=== PATIENT | female | born 1990 | race Two or more races ===

== ENCOUNTER → 2016-06-21 | Outpatient (CLI) | payer SELFPAY | LOC: RAD 15:14 | PROVIDERS: ATTEND Nurse Practitioner Women's Health | DX: Z34.81 Encounter for supervision of other normal pregnancy, first trimester (principal) | CPT/HCPCS: 76801 ==

== ENCOUNTER 2017-02-03 03:24 | Inpatient (IN) | payer MEDICAID ==
[2017-02-03 04:09] LABS: APPEARANCE,URINE TURBID; BILIRUBIN,URINE NEGATIVE (NEGATIVE); GLUCOSE, URINE NEGATIVE (NEGATIVE); KETONES,URINE NEGATIVE (NEGATIVE); LEUKOCYTE ESTERASE,URINE TRACE (NEGATIVE); NITRITE,URINE NEGATIVE (NEGATIVE); PROTEIN,URINE 100 mg/dL (NEGATIVE); URINE SPECIFIC GRAVITY 1.005; UROBILINOGEN,URINE NEGATIVE mg/dL (<2.0)
[2017-02-03 04:17] LABS: AMNISURE (ROM) POSITIVE (NEGATIVE)
[2017-02-03] MEDS ORDERED: RINGERS SOLUTION,LACTATED 1,000 ML IV PRN (04:22)
[2017-02-03] MEDS ORDERED: RINGERS SOLUTION,LACTATED 1,000 ML IV ONE (04:22)
[2017-02-03 04:58] LABS: URINE BARBITURATES SCREEN NEGATIVE; URINE METHADONE SCREEN NEGATIVE; URINE OPIATES LOW NEGATIVE; URINE PHENCYCLIDINE SCREEN NEGATIVE
[2017-02-03] MEDS ORDERED: MISOPROSTOL 0.2 MG TABLET ONE (05:13)
[2017-02-03] MEDS ORDERED: LIDOCAINE 1% INJ-PF (10 MG/ML) 30 ML SDV ONE (05:13)
[2017-02-03] MEDS ORDERED: OXYTOCIN/NORMAL SALINE 20 UNIT/1,000 ML RTUINJ ONE ×2 (05:13→17:38)
[2017-02-03 05:17] LABS: ABSOLUTE LYMPHOCYTES (AUTO) 2.4 10^3/uL (0.5-4.7); ABSOLUTE MONOCYTES (AUTO) 0.7 10^3/uL (0.1-1.4); ABSOLUTE NEUT (AUTO) 7.9 10^3/uL (1.7-8.2); BASOPHILS % (AUTO) 0.2 % (0-2); EOSINOPHILS % (AUTO) 0.4 % (0-6); HEMATOCRIT 34.5 % (36.0-47.0); HGB HCT DIFFERENCE 1.5; LYMPHOCYTES % (AUTO) 21.4 % (13-45); MEAN CORPUSCULAR HEMOGLOBIN 30.6 pg (27.0-33.4); MEAN CORPUSCULAR HGB CONC 34.6 g/dL (32.0-36.0); MEAN CORPUSCULAR VOLUME 88 fl (80-97); MONOCYTES % (AUTO) 6.6 % (3-13); RED BLOOD COUNT 3.91 10^6/uL (3.72-5.28); RED CELL DISTRIBUTION WIDTH 14.3 % (11.5-14.0); SEGMENTED NEUTROPHILS % (AUTO) 71.4 % (42-78); WHITE BLOOD COUNT 11.1 10^3/uL (4.0-10.5)
[2017-02-03 05:53] LABS: RUBELLA IGG ANTIBODY 5.53 IU/mL
[2017-02-03] MEDS ORDERED: EPHEDRINE SULFATE INJ 50 MG/1 ML AMPULE ONE (06:01)
[2017-02-03] MEDS ORDERED: FENTANYL/BUPIVACAINE/NS/PF 200 MCG/100 ML RTUINJ EPI ONE (06:02)
[2017-02-03] MEDS ORDERED: BUPIVACAINE HCL 0.25 % INJ/PF (2.5 MG/1 ML) 30 ML VIAL ONE (06:02)
[2017-02-03] MEDS ORDERED: OXYTOCIN/NORMAL SALINE 20 UNIT/1,000 ML RTUINJ IV PRN (11:02)
[2017-02-03] MEDS ORDERED: CITRIC ACID/SODIUM CITRATE ORAL SOLN 15 ML UDCUP ONE (17:25)
[2017-02-03] MEDS ORDERED: CEFAZOLIN 2 GM/D5W RTU 0 GM/0 ML RTUPB IV ONE (17:25)
[2017-02-03] MEDS ORDERED: FAMOTIDINE INJ/PF 20 MG/2 ML SDV IV ONE (17:26)
[2017-02-03] MEDS ORDERED: SODIUM BICARBONATE 8.4% INJ 50 MEQ/50 ML DISP.SYRIN ONE (17:26)
[2017-02-03] MEDS ORDERED: METOCLOPRAMIDE HCL INJ/PF 10 MG/2 ML SDV ONE (17:26)
[2017-02-03] MEDS ORDERED: LIDOCAINE 1.5%/EPINEPHRINE INJ-PF 30 ML SDV ONE (17:28)
[2017-02-03] MEDS ORDERED: CLINDAMYCIN 900 MG/D5W RTU 50 ML IV ONE (17:28)
[2017-02-03] MEDS ORDERED: PROPOFOL INJ 200 MG/20 ML VIAL IV ONE (17:38)
[2017-02-03] MEDS ORDERED: MIDAZOLAM 2 MG/2 ML INJ ONE (17:39)
[2017-02-03] MEDS ORDERED: ONDANSETRON HCL INJ/PF 4 MG/2 ML SDV ONE (17:39)
[2017-02-03] MEDS ORDERED: KETAMINE HCL INJ 500 MG/10 ML VIAL ONE (17:39)
[2017-02-03] MEDS ORDERED: FENTANYL CITRATE INJ/PF 100 MCG/2 ML AMPUL ONE (17:39)
[2017-02-03] MEDS ORDERED: MORPHINE SULFATE 10 MG/ML INJ ONE (17:39)
[2017-02-03] MEDS ORDERED: ACETAMINOPHEN 325 MG TABLET PO PRN (19:00)
[2017-02-03] MEDS ORDERED: SIMETHICONE 80 MG TAB.CHEW PO PRN (19:00)
[2017-02-03] MEDS ORDERED: MEASLES,MUMPS&RUBELLA VACC/PF 0.5 ML VIAL SUBCUT PRN (19:00)
[2017-02-03] MEDS ORDERED: PROMETHAZINE HCL INJ 25 MG/1 ML VIAL IM PRN (19:00)
[2017-02-03] MEDS ORDERED: DIPH/PERTUSS(ACELL)/TETANUS VAC/PF 0.5 ML SYR (>=10YO) IM PRN (19:00)
[2017-02-03] MEDS ORDERED: OXYCODONE-ACETAMINOPHEN 5-325 MG TABLET PO PRN (19:00)
[2017-02-03] MEDS ORDERED: HYDROMORPHONE HCL INJ/PF 2 MG/ML AMPULE IV PRN (19:00)
--- NOTE | 2017-02-03 19:38 | OPERATIVE REPORT E ---
Operative Report NAME: NATHANAEL PIERRE : 1990 AGE: 26Y DATE OF SURGERY: 02/03/2017 ROOM: LR200 PREOPERATIVE DIAGNOSES: 1. A 40-week intrauterine . 2. Arrest of descent. POSTOPERATIVE DIAGNOSES: 1. A 40-week intrauterine . 2. Arrest of descent. OPERATION: Primary low-transverse section. SURGEON: Gamal Del Real D.O. FIELD LABORER: None. ANESTHESIA: Epidural. COMPLICATIONS: None. ESTIMATED BLOOD LOSS: 600 mL. PATHOLOGY: None. FINDINGS: 1. Viable male at 1756 hours on 02/03/2017. 2. Apgars 8 at one, 9 at five. 3. Weight: 10 pounds 6 ounces. 4. Normal-appearing bilateral fallopian tubes and ovaries. DESCRIPTION OF PROCEDURE: The patient was taken to the operating room where she was placed in the dorsal supine position with a leftward tilt upon the operating room table. Her epidural anesthesia was then checked and found to be adequate. She was than prepped and draped in a normal sterile fashion. A scalpel was then used to make a Pfannenstiel skin incision. The skin incision was carried down through the subcutaneous tissues to the layer of the fascia. The fascia was then incised at the midline, and the fascial incision was then extended bilaterally using the Bovie cautery. The superior fascial edge was grasped with Qi clamps, elevated, and the rectus muscles dissected off sharply and bluntly. Attention was then turned to the inferior fascial edge, which was grasped with Qi clamps, elevated, and rectus muscles dissected off sharply and bluntly. The rectus muscles were then in the midline, the perineum identified and entered bluntly with the surgeon's hand. Bladder blade was then inserted. A scalpel was used to make a low transverse hysterotomy incision. The infant was delivered through this incision in the cephalic position without difficulty and atraumatically. The nose and mouth were suctioned. Cord was clamped and cut. The was handed off to the awaiting tap and die maker technician. Cord blood was obtained. The placenta was then manually removed from the uterus. The uterus was exteriorized and cleared of all clots and debris. The hysterotomy incision was then reapproximated using 2 layers of 1-0 Vicryl in a running locking fashion, following closely with a second layer. Excellent hemostasis was noted. The uterus was then returned to the abdomen. The bilateral pericolic gutters were irrigated and cleared of all clots and debris. Again, the hysterotomy was reinspected and found to have excellent hemostasis. The rectus muscles were then reapproximated using 1-0 Vicryl interrupted sutures. The fascia was then closed using 1-0 Vicryl in a running, non-locking fashion. The subcutaneous space was then made hemostatic using Bovie cautery. The skin was closed with absorbable viet, covered with an Op-Site, and then with a pressure dressing. At this point in time, the procedure was terminated. All sponge, lap and needle counts were correct x2. The patient tolerated the procedure well. The patient was taken to the recovery room in stable condition. DICTATING PHYSICIAN: Gamal Del Real DO [id number] PHY#: [id number] ID: [id number] JOB#: [id number] ACCT: [id number] cc:Gamal Del Real D.O. >
--- NOTE | 2017-02-03 20:12 | Delivery Summary ---
Del Sum A-C Datetime Report Generated by CPN: 02/03/2017 20:12 DELIVERY PERSONNEL DELIVERY PERSONNEL: [id number] Delivery Doctor:: Gamal Del Real DO Anesthesiologist:: Alicia Brenner MD BATTING MACHINE OPERATOR:: Rashad Haque CRNA Labor and Delivery Nurse:: Bobbi Pierson RNrun boat operator Nurse:: NITHYA Fraga Nursery Nurse:: Gomez Mahajan RN Surgical Pathologist/CORDWAINER: [facility] Kimber Surgical Pathologist/CORDWAINER: Curly Corral CST Additional Personnel: : RN. Blanka Pereira RN MATERNAL INFORMATION Delivery Anesthesia: Epidural Medications During Delivery: Clindamycin Medications After Delivery: Pitocin Bolus-Please Comment; Pitocin Drip 20 Units/1000ml NSS Meds After Delivery Comment: Ns with Pitocin 20 units/liter ivf bolus x 2 liters per csection protocol Estimated Blood Loss (ml): 600 Maternal Complications: None LABOR SUMMARY EDC: 01/29/2017 00:00 No. Babies in Womb: 1 Attempted: No Labor Anesthesia: Epidural LABOR INFORMATION Reason for Induction: Not Applicable Onset of Labor: 02/03/2017 04:01 Complete Dilatation: 02/03/2017 15:16 Oxytocin: N/A Group B Beta Strep: negative Antibiotics # of Doses: N/A Antibiotics Time of Last Dose: N/A Name of Antibiotic Given: N/A Steroids Given: None Reason Steroids Not Administered: Not Applicable MEMBRANES Membranes Rupture Method: Spontaneous Rupture of Membranes: 02/03/2017 01:45 Length of Rupture (hr): 16.18 Amniotic Fluid Color: Clear Amniotic Fluid Amount: Moderate Amniotic Fluid Odor: None STAGES OF LABOR Stage 1 hr: 11 Stage 1 min: 15 Stage 2 hr: 2 Stage 2 min: 40 Stage 3 hr: 0 Stage 3 min: 1 Total Time in Labor hr: 13 Total Time in Labor min: 56 VAGINAL DELIVERY Sponge Count Correct: N/A CSECTION DELIVERY Primary Indication: Failure of Descent Secondary Indication: N/A CSection Urgency: Non-Scheduled CSection Incidence: Primary Labor: Labor Elective: Nonelective CSection Incision: Lower Uterine Transverse Sterilization Procedure: Uchida Uterine Closure: Double-layer closure BABY A INFORMATION Infant Delivery Date/Time: 02/03/2017 17:56 Method of Delivery: Born in Route : No : N/A Forceps: N/A Vacuum Extraction: N/A Shoulder Dystocia : No (Annotations: Data stored by [facility] on behalf of user) PRESENTATION/POSITION BABY A Presentation: Cephalic Breech Presentation: N/A PLACENTA INFORMATION BABY A Placenta Delivery Time : 02/03/2017 17:57 Placenta Method of Delivery: Manual Removal Placenta Status: Delivered SCORES BABY A Heart Rate 1 min: >100 bpm Resp Effort 1 min: Good Cry Reflex Irritability 1 min: Cough or Sneeze or Pulls Away Muscle Tone 1 min: Active Motion Color 1 min: Body Talmo, Extremities Blue SCORE 1 MIN: 9 Heart Rate 5 min: >100 bpm Resp Effort 5 min: Good Cry Reflex Irritability 5 min: Cough or Sneeze or Pulls Away Muscle Tone 5 min: Active Motion Color 5 min: Body Talmo, Extremities Blue SCORE 5 MIN: 9 INFORMATION BABY A Gestational Age at Delivery: 40.5 Gestational Status: Full Term- 39- 40.6 Weeks Outcome : Liveborn Condition : Stable Sex: Male IDENTIFICATION BABY A Verification Date/Time: 02/03/2017 20:00 ID Band Number: [id number] Mother's Name Verified: Yes RN Verifying Infant: Lou Humphreyco, RN Additional Verifying Personnel: Ortiz Canchola RN WEIGHT/LENGTH BABY A Birthweight (gm): 4695 Weight (lb): 10 Infant Weight (oz): 6 Length (in): 20.50 Infant Length (cm): 52.07 CORD INFORMATION BABY A Nuchal Cord : N/A Cord Blood Taken: Yes-For Storage (Mom's Blood type +) ASSESSMENT BABY A Physical Findings at Delivery: Caput Succedaneum Infant Respirations: Appears Normal Skin to Skin: Yes Delivery Room Supervisor/ALS Called : Yes Infant Care By: staff in OR Transferred To: [facility] BABY B INFORMATION : N/A SIGNATURES Signature: with User ID: [place]
[2017-02-03] MEDS ORDERED: MEPERIDINE HCL/PF INJ 25 MG/1 ML DISP.SYRIN ONE ×2 (20:16)
--- NOTE | 2017-02-03 21:07 | Admission Physical ---
Datetime Report Generated by CPN: 02/03/2017 21:07 CURRENT ADMISSION Chief Complaint: Uterine Contractions; Suspected Ruptured Membranes Admit Plan: Admit to Unit; Initiate Labor Protocol ALLERGIES Medication Allergies: Yes Medication Allergies: Penicillins (07/06/2015) Latex: No Latex Allergies OBSTETRICAL HISTORY EDC: 01/29/2017 00:00 : 2 Para: 1 Term: 1 : 0 SAB: 0 IAB: 0 Ectopic: 0 Livin Cesareans: 0 VBACs: 0 Multiple Births: 0 Gestational Diabetes: No Rh Sensitization: No Incompetent Cervix: No ALINA: No Infertility: No ART Treatment: No Uterine Anomaly: No IUGR: No Hx Previous C/S: No Macrosomia: No Hx Loss/Stillborn: No PIH: No Hx : No Placenta Previa/Abruption: No Depression/PP Depression: No PTL/PROM: No Post Hemorrhage: No Current Procedures: Ultrasound Obstetrical History Comments: 2011 38 weeks baby girl 2016 current SEE RECORDS Alcohol: No Marijuana : No Cocaine: No Other Illicit Drugs: No Cigarettes: Former Smoker. [id number] MEDICAL HISTORY Diabetes: No Blood Transfusion: No Pulmonary Disease (Asthma, TB): Yes Breast Disease: No Hypertension: No Transportation Maintenance Worker Surgery: No Heart Disease: No Hosp/Surgery: No Autoimmune Disorder: No Anesthetic Complications: No Kidney Disease: No Abnormal Pap Smear: No Neuro/Epilepsy: No Psychiatric Disorders: No Other Medical Diseases: No Hepatitis/Liver Disease: No Significant Family History: No Varicosities/Phlebitis: No Trauma/Violence : No Thyroid Dysfunction: No Medical History Comments: Asthma INFECTIOUS HISTORY Gonorrhea: No Genital Herpes: No Chlamydia: Yes Tuberculosis: No Syphilis: No Hepatitis: No HIV/AIDS Exposure: No Rash or Viral Illness: No HPV: No Infectious History Comments: Chlamydia 2017 PHYSICAL EXAM General: Normal HEENT: Normal Neurologic: Normal Thyroid: Normal Heart: Normal Lungs: Normal Breast: Deferred Back: Normal Abdomen: Normal Genitourinary Exam: Normal Extremities: Normal DTRs: Normal Pelvic Type: Adequate VAGINAL EXAM Dilatation: 3 Effacement: 70 Station: -2 FETUS A EGA: 40.5 PLANS FOR LABOR AND DELIVERY Labor and Delivery: None Pain Management: Natural Feeding Preference: Breast Benefit of Breast Feed Discussed: Yes Circumcision: Yes INFORMED CONSENT Signature: with User ID: [email or web address]
[2017-02-03] MEDS: IBUPROFEN 800 MG TABLET PO SCH ×2 (21:18→21:19)
[2017-02-03] MEDS: KETOROLAC TROMETHAMINE INJ/PF 30 MG/1 ML SDV IV SCH (21:30)
[2017-02-03] MEDS: OXYCODONE-ACETAMINOPHEN 5-325 MG TABLET PO PRN (21:32)
[2017-02-04] MEDS: KETOROLAC TROMETHAMINE INJ/PF 30 MG/1 ML SDV IV SCH ×2 (06:34→13:57)
--- NOTE | 2017-02-04 09:39 | PDOC PROGRESS REPORT ---
Subjective-OB Subjective: Post Delivery Day: 26 year old. Denies any needs at this time Physical Exam (OB) Vital Signs: Temp Pulse Resp BP Pulse Ox 98.3 F 64 16 105/50 L 99 02/04/17 07:55 02/04/17 07:55 02/04/17 07:55 02/04/17 07:55 02/04/17 07:55 Intake & Output 02/03/17 02/04/17 02/05/17 06:59 06:59 06:59 Intake Total 625 Output Total 1350 Balance -725 Weight 84.35 kg - Dressing Removed: No - opsite Incision: Dressing - Lochia Lochia Amount: Scant < 10 ml Lochia Color: Rubra/Red - Abdomen Description: Tender, Soft, Round Hernia Present: No Bowel Sounds: Normoactive Flatus Presence: Absent Stool: No Fundal Description: Firm, Midline Fundal Height: u/u - u/2 Objective-Diagnostic Laboratory: 02/03/17 04:40
[2017-02-04 10:19] LABS: HGB HCT DIFFERENCE 0.9; MEAN CORPUSCULAR HGB CONC 34.3 g/dL (32.0-36.0); MEAN CORPUSCULAR VOLUME 90 fl (80-97); RED BLOOD COUNT 2.99 10^6/uL (3.72-5.28); RED CELL DISTRIBUTION WIDTH 14.9 % (11.5-14.0); WHITE BLOOD COUNT 15.5 10^3/uL (4.0-10.5)
[2017-02-04 10:22] LABS: HEMOGLOBIN 9.3 g/dL (12.0-15.5)
[2017-02-04] MEDS: PRENATAL VITAMIN W-O CA NO5/FE FUMARATE/FA CAPSULE PO SCH (10:23)
[2017-02-04] MEDS: DOCUSATE SODIUM 100 MG CAPSULE PO SCH ×2 (10:23→17:32)
[2017-02-04] MEDS: OXYCODONE-ACETAMINOPHEN 5-325 MG TABLET PO PRN ×3 (10:24→22:06)
[2017-02-04] MEDS: IBUPROFEN 800 MG TABLET PO SCH ×2 (11:13→17:20)
[2017-02-05] MEDS: IBUPROFEN 800 MG TABLET PO SCH ×3 (00:46→11:27)
[2017-02-05] MEDS: DOCUSATE SODIUM 100 MG CAPSULE PO SCH (09:28)
[2017-02-05] MEDS: PRENATAL VITAMIN W-O CA NO5/FE FUMARATE/FA CAPSULE PO SCH (09:29)
[2017-02-05] MEDS: OXYCODONE-ACETAMINOPHEN 5-325 MG TABLET PO PRN ×2 (09:35→14:20)
--- NOTE | 2017-02-05 09:43 | PDOC PROGRESS REPORT ---
Subjective-OB Subjective: Post Delivery Day: 26 year old. Denies any needs at this time. Ready to go home later today. Physical Exam (OB) Vital Signs: Temp Pulse Resp BP Pulse Ox 97.3 F 56 L 16 115/53 L 100 02/05/17 08:23 02/05/17 08:23 02/05/17 08:23 02/05/17 08:23 02/05/17 08:23 Intake & Output 02/04/17 02/05/17 02/06/17 06:59 06:59 06:59 Intake Total 625 1470 Output Total 1350 Balance -725 1470 - Dressing Removed: Yes - opsite Incision: Dressing - Lochia Lochia Amount: Small 10-25 ml Lochia Color: Rubra/Red - Abdomen Description: Soft, Round Hernia Present: No Bowel Sounds: Normoactive Flatus Presence: Present Stool: No Fundal Description: Firm, Midline Fundal Height: u/u - u/2 Objective-Diagnostic Laboratory: 02/04/17 10:09 02/04/17 10:09 WBC 15.5 H RBC 2.99 L Hgb 9.3 L D Hct 27.0 L MCV 90 MCH 31.0 MCHC 34.3 RDW 14.9 H Plt Count 137 L
--- NOTE | 2017-02-05 09:53 | PDOC DISCHARGE SUMMARY ---
Final Diagnosis Discharge Date: 02/05/17 - Final Diagnosis (1) Asthma Is this a current diagnosis for this admission?: Yes (2) Chlamydia infection during Is this a current diagnosis for this admission?: Yes (3) Delivery by emergency caesarean section Is this a current diagnosis for this admission?: Yes (4) Depression with anxiety Is this a current diagnosis for this admission?: Yes (5) Failure of descent in labor, delivered, current hospitalization Is this a current diagnosis for this admission?: Yes Discharge Data - Discharge Medication Home Medications: Vit/Iron Fum/Folic AC [ Tablet] 1 tab PO DAILY 02/03/17 Docusate Sodium [Colace 100 mg Capsule] 100 mg PO BID #30 capsule 02/05/17 Ferrous Sulfate 325 mg PO BID #60 tablet. 02/05/17 Ibuprofen [Motrin 800 mg Tablet] 800 mg PO Q6 #30 tablet 02/05/17 Oxycodone HCl/Acetaminophen [Percocet 5-325 mg Tablet] 1 tab PO Q4HP PRN #20 tablet 02/05/17 Gestational Age: 40.5 wks Reason(s) for Admission: Onset of Labor, PROM Procedures: Ultrasound Intrapartum Procedure(s): : Low Cervical, Transverse - Data Baby 1 Male at 1 minute: 9 at 5 minutes: 9 Weight: 4.706 kg Home with Mother: Yes Complications: No - Diagnosis Test Laboratory: Temp Pulse Resp BP Pulse Ox 97.3 F 56 L 16 115/53 L 100 02/05/17 08:23 02/05/17 08:23 02/05/17 08:23 02/05/17 08:23 02/05/17 08:23 02/03/17 02/03/17 02/04/17 03:33 04:40 10:09 RBC 3.91 2.99 L Hgb 12.0 9.3 L D Hct 34.5 L 27.0 L Urine Opiates Screen NEGATIVE - Discharge information/Instructions Discharge Activity: Activity As Tolerated, Balance Activity w/Rest, No Lifting Over 10 Pounds, No Lifting/Push/Pulling, Pelvic Rest, Slowly Increase Activity, No tub bath Discharge Diet: Regular Disposition: HOME, SELF-CARE Follow up [facility]: [facility] in: 1, Weeks
[2017-02-05 14:57] VITALS: BP 115/53
== END 2017-02-05 15:58 | disposition home or self-care (01) | DRG 766 ==
LOC: LC 03:24 → LR 04:20 → 2N 20:40
PROVIDERS: ADMIT Obstetrics & Gynecology Gynecology; ATTEND Obstetrics & Gynecology
PROC: 10D00Z1 Extraction of Products of Conception, Low, Open Approach (ICD-10-PCS; principal; 2017-02-03)
PROC: 4A1HXCZ Monitoring of Products of Conception, Cardiac Rate, External Approach (ICD-10-PCS; 2017-02-03)
DX: O62.1 Secondary uterine inertia (principal); O99.513 Diseases of the respiratory system complicating pregnancy, third trimester; J45.909 Unspecified asthma, uncomplicated; O99.344 Other mental disorders complicating childbirth; F32.9 Major depressive disorder, single episode, unspecified; O42.92 Full-term premature rupture of membranes, unspecified as to length of time between rupture and onset of labor; F41.9 Anxiety disorder, unspecified; Z3A.40 40 weeks gestation of pregnancy; Z37.0 Single live birth; Z3A.00 Weeks of gestation of pregnancy not specified
CPT/HCPCS: 1961; 36415; 59025; 80307; 81005; 84112; 85025; 85027; 86592; 86762; 86850; 86900; 86901; 87340; J0690; J1885; J2175; J2250; J2270; J2405; J2590; J2704; J2765; J3010; J3490; S0028